=== PATIENT | female | born 1990 | race Two or more races ===

== ENCOUNTER 2017-08-17 12:52 | Emergency (ER) | payer OTHER ==
[2017-08-17 13:08] LABS: URINE HCG POC HCG NEGATIVE (Negative)
[2017-08-17 13:18] LABS: BILIRUBIN,URINE NEGATIVE (NEG); CLARITY,URINE CLEAR; COLOR,URINE YELLOW; GLUCOSE,URINE NEGATIVE (NEG); NITRITE,URINE NEGATIVE (NEG); PROTEIN,URINE NEGATIVE (NEG-TRACE); UROBILINOGEN,URINE 0.2 mg/dL (0.2 mg/dL)
[2017-08-17 13:30] LABS: BACTERIA,URINE 0 /HPF (0-FEW); RBC,URINE 0 /HPF (0-2); SQUAMOUS EPITHELIAL CELL,UR FEW /LPF; WBC,URINE 0 /HPF (0-4)
[2017-08-17] MEDS: PHENAZOPYRIDINE 200 MG TABLET. PO (13:33)
== END 2017-08-17 15:30 | disposition home or self-care (01) ==
LOC: ER 12:52
DX: N39.0 Urinary tract infection, site not specified (principal); R10.2 Pelvic and perineal pain; Z98.51 Tubal ligation status
CPT/HCPCS: 74176; 81001; 81025; 87086; 99285-25